=== PATIENT | male | born 1945 | race Caucasian/White ===

== ENCOUNTER 2020-12-24 20:35 | Inpatient (IN) | payer MEDICARE, OTHER ==
[~2020-12-24] VITALS: Ht 185.4 cm; Wt 100.7 kg
--- NOTE | 2020-12-24 20:55 | NUR ---
siebel architect CONTACTED, REQUESTED SITTER/SECURITY STANDBY TO PREVENT ELOPEMENT ATTEMPTS UNTIL PATIENT GOES TO M[facility]. PATIENT WILL GO TO ROOM 137B
[2020-12-24 21:10] LABS: HEMATOCRIT 40.2 % (36.7-47.1); MEAN CORPUSCULAR HEMOGLOBIN 31.3 uug (23.8-33.4); MEAN CORPUSCULAR VOLUME 90.9 fL (73.0-96.2); PLATELET COUNT (AUTO) 263 K/uL (152-348)
--- NOTE | 2020-12-24 21:15 | NUR ---
train electronic technician Anish called to inform patient is COVID negative.
[2020-12-24 21:16] LABS: CARBON DIOXIDE 26 mmol/L (21-32); CHLORIDE 103 mmol/L (98-107); CREATININE 1.2 mg/dL (0.6-1.3); GLUCOSE 190 mg/dL (74-106); POTASSIUM 3.8 mmol/L (3.5-5.1); UREA NITROGEN, BLOOD 16 mg/dL (7-18)
[2020-12-24 21:22] LABS: ACETAMINOPHEN < 2.0 ug/mL (10-30); ALANINE AMINOTRANSFERASE 20 U/L (16-63); ALKALINE PHOSPHATASE 71 U/L (50-136); ASPARTATE AMINOTRANSFERASE 20 U/L (15-37); BILIRUBIN,TOTAL 0.8 mg/dL (0.2-1.0); TOTAL PROTEIN, SERUM 7.3 g/dL (6.4-8.2)
[2020-12-24] MEDS ORDERED: ASPIRIN 81 MG TAB.CHEW PO ONE (22:00)
--- NOTE | 2020-12-24 22:00 | NUR ---
Pt. admitted to [facility] , under care of and Dr. Zambrano. Dx: psychosis Belongs List completed
--- NOTE | 2020-12-24 22:05 | NUR ---
patient does not know his active medications/dosages at this time.
--- NOTE | 2020-12-24 22:36 | NUR ---
Medication list which was obtained by staff in [facility] will not be entered by myself. This medication list was not confirmed by myself, the patient stated he did not know his active medications and stated " I only take my baclofen and percocet, but I do not know the doses". I notified the change house attendant regarding this issue, and will not be entering second hand information. The list provided to me is incomplete and states the following: HCTZ 12.5 qd (inappropriate units, missing route) Gabapentin 400mg TID Losartan 100mg qd Lipitor 20 qd (missing units/route) Cymbalta 60 (missing units/route) Percocet 10/325 prn ( missing requency/route/units) Lexapro 20mg (missing frequency) Insulin Reg ( No additional information was provided) I spoke to staff at MHU and notified them that this medication list is not appropriate and will not be entered as part of the ER work flow, especially since the medication list was obtained when the patient was in MHU census.
[2020-12-24] MEDS ORDERED: MAG HYDROX/AL HYDROX/SIMETH 30 ML LIQUID UDC PO PRN (23:00)
[2020-12-24] MEDS ORDERED: MAGNESIUM HYDROXIDE 30 ML LIQUID UDC PO PRN (23:00)
[2020-12-25] MEDS ORDERED: HYDR12.55 PO (00:32)
[2020-12-25] MEDS ORDERED: ATOR20TA PO (00:32)
[2020-12-25] MEDS ORDERED: ESCI20TA PO (00:32)
[2020-12-25] MEDS ORDERED: INSU100V28 (00:32)
[2020-12-25] MEDS ORDERED: OXYC-133 PO (00:32)
[2020-12-25] MEDS ORDERED: GABA400C PO (00:32)
[2020-12-25] MEDS ORDERED: LOSA100T31 PO (00:32)
[2020-12-25] MEDS ORDERED: DULO60CA45 PO (00:32)
[2020-12-25] MEDS ORDERED: BACL10TA PO (00:32)
--- NOTE | 2020-12-25 00:43 | NUR ---
GPS: Admitted to unit earlier a 74 yr.old male under the care of / in stable condition. Pt.is on a 72 hour hold for DTS. Pt. OD on his meds at home,per hold. Pt.strongly denies overdose was an attempt to end his life. Pt.is AOx4. Anxious,cooperative during admission process. Contracts for safety while in the hosp. Pt's advisement/Pt's rights booklet given. Personal belongings list completed. Showered with assist from staff. Unit rules explained. Re-assured prn. Refuses med.for anxiety despite explanation of risks vs benefits x3. Safety checks Q15 minutes as scheduled. Fall precautions observed.
[2020-12-25] MEDS: ACETAMINOPHEN 325 MG TABLET PO PRN ×2 (01:18→15:41)
[2020-12-25] MEDS: ZOLPIDEM 5 MG TABLET PO PRN ×2 (01:18→22:13)
[2020-12-25] MEDS: LORAZEPAM 0.5 MG TABLET PO PRN ×2 (01:18→20:49)
--- NOTE | 2020-12-25 06:20 | NUR ---
GPS: Pt.slept for 3.30 last night. Anxious and verbalizing wanting to go home today. Re-assured and re-directed. Denies wanting to harm self. Arlet Marie DO notified to do med.recon. Communicated to charge nurse. Will continue to monitor pt's condition. Refuses anti-anxiety pill when offered by staff.
[2020-12-25 08:43] VITALS: BP 140/83
--- NOTE | 2020-12-25 11:44 | NUR ---
UR NOTE: Per GG Intake: Auth# [id number] obtained from Catie Mendez with [facility] [phone]. Please contact her directly for with clinicals. SW contacted Catie Mendez with [facility] ([phone]) who stated the assigned supervisor case loading is Flory Eugene. Catie sent Flory a message to contact this Belt Tender regarding clinicals.
--- NOTE | 2020-12-25 11:49 | NUR ---
Firearms Report: Yarn Dry Room Worker completed and submitted a [employer] firearms report for 5150 grave disability certifications. A copy of report has been placed in patient chart.
--- NOTE | 2020-12-25 14:18 | NUR ---
CHANDANA Initial Discharge Plan: Pt resides at home [address], [place], [place] [address] with his granddaughter Chloe ([phone]) and Shelby ([phone]). Pt will return home upon discharge. CHANDANA will continue to work with patient, family, and MD to ensure a safe and proper discharge plan.
--- NOTE | 2020-12-25 14:21 | NUR ---
Substance [place]: Patient was provided with a brief substance abuse intervention due to medication overdose and referred to [facility] [place] [address], [place] [address] ([phone]); [place] [facility] [address], [address], [place] [address] ([phone]); [facility] ([phone]); [facility] ([phone]); [facility] ([phone]); and National Suicide Prevention [facility] ([phone]).
[2020-12-25] MEDS: ESCITALOPRAM OXALATE 10 MG TABLET PO SCH (15:38)
[2020-12-25 17:03] VITALS: BP 109/61
--- NOTE | 2020-12-25 18:28 | NUR ---
Patient resting in room, AOx3-4. Calm and cooperative. No signs of acute distress. Patient compliant with medications and care. Patient denies SI/ HI. Frequent patient rounding for safety. Needs met. Will endorse to incoming shift for continuity of care.
[2020-12-25 19:57] VITALS: BP 156/87
[2020-12-26] MEDS ORDERED: OXYCODONE/APAP 5-325 MG TABLET PO PRN (01:00)
[2020-12-26] MEDS ORDERED: INSULIN REGULAR, HUMAN 300 UNIT/3 ML VIAL SQ PRN (01:00)
[2020-12-26] MEDS ORDERED: DEXTROSE 50% 50 ML DISP.SYRIN IV PRN (01:00)
[2020-12-26] MEDS: BLOOD SUGAR DIAGNOSTIC 1 EACH STRIP VI SCH ×2 (06:09→11:30)
--- NOTE | 2020-12-26 06:10 | NUR ---
Patient denies SI. Patient slept 8.30 hours last night. No distress noted . This advertising copy writer was able to engage patient in meaningful conversation. Safety strategies are in place, continuing to monitor depression.
[2020-12-26 07:47] VITALS: BP 131/80
[2020-12-26] MEDS ORDERED: LOSARTAN POTASSIUM 50 MG TABLET PO SCH (09:00)
[2020-12-26] MEDS ORDERED: BACLOFEN 10 MG TABLET PO SCH (09:00)
[2020-12-26] MEDS ORDERED: HYDROCHLOROTHIAZIDE 12.5 MG CAPSULE PO SCH (09:00)
[2020-12-26] MEDS ORDERED: GABAPENTIN 400 MG CAPSULE PO SCH (09:00)
[2020-12-26 09:51] VITALS: BP 131/80
[2020-12-26] MEDS: ESCITALOPRAM OXALATE 10 MG TABLET PO SCH (09:51)
--- NOTE | 2020-12-26 12:00 | NUR ---
Patient is no longer on a hold. Pt did not want to stay voluntarily. Pt is leaving AMA. Pt's family (grandchildren) are picking him up. He will be staying with family.
[2020-12-26] MEDS ORDERED: ATORVASTATIN 20 MG TABLET PO SCH (21:00)
== END 2020-12-26 12:00 | disposition home or self-care (01) | DRG 881 ==
LOC: ER 20:35 → GPS 22:06
PROVIDERS: ADMIT Psychiatry & Neurology Psychiatry; ATTEND Internal Medicine
DX: F32.9 Major depressive disorder, single episode, unspecified (principal); F23 Brief psychotic disorder; R45.851 Suicidal ideations; F41.9 Anxiety disorder, unspecified; Z86.73 Personal history of transient ischemic attack (TIA), and cerebral infarction without residual deficits; F29 Unspecified psychosis not due to a substance or known physiological condition; Z73.6 Limitation of activities due to disability; E11.42 Type 2 diabetes mellitus with diabetic polyneuropathy; M62.81 Muscle weakness (generalized); Z98.1 Arthrodesis status; G89.29 Other chronic pain; I50.9 Heart failure, unspecified; Z20.822 Contact with and (suspected) exposure to COVID-19; Z79.4 Long term (current) use of insulin
CPT/HCPCS: 36415; 70030-TC; 85025; 93005; A4663